=== PATIENT | male | born 1990 | race Caucasian/White ===

== ENCOUNTER 2016-12-14 16:44 | Inpatient (IN) | payer BC ==
--- NOTE | ~2016-12-14 | HP ---
Unit #: [id number] #: [id number] Patient: LAVELL BARKER [id number] [place] [address] [id number] MR#: [id number] NAME: LAVELL BARKER ROOM: P252 Age: 26 Sex: M Admission Date: 12/14/2016 : 1990 Attending Physician: Vasquez Corona M.D. Admitting Physician: Vasquez Corona M.D. Primary Care Physician: Primary Care Physician No HISTORY AND PHYSICAL History and physical completed on 12/15/2016. HISTORY OF PRESENT ILLNESS Lavell is a 26-year-old male, admitted on 12/14/2016, to [address] [place] [address] for suicidal ideation. PAST MEDICAL HISTORY GERD. PAST SURGICAL HISTORY None. SOCIAL HISTORY Denies tobacco use but does use vapes. No alcohol or illegal drug use. He is currently engaged and lives with his fiancee and [id number] son. FAMILY HISTORY Noncontributory. REVIEW OF SYSTEMS CONSTITUTIONAL: No fever or chills. HEENT: Denies any sore throat, ear pain or runny nose. CARDIOVASCULAR: Denies chest pain, irregular heart rhythm or palpitations. CHEST: Denies shortness of breath or cough. No hemoptysis. GASTROINTESTINAL: Denies nausea, vomiting, diarrhea or chronic constipation. ENDOCRINE: Denies history of increased thirst or urination. No recent significant weight loss or gain. GENITOURINARY: Denies dysuria, frequency, or hematuria. SKIN: Denies any rashes. HEMATOLOGIC: Denies history of increased bleeding or bruising. MUSCULOSKELETAL: Denies any hot, swollen joints. No generalized muscle pain. NEUROLOGIC: Denies problems with vision or speech. No frequent, severe headaches. No numbness, tingling or weakness in any extremities. Denies loss of bladder or bowel control. CURRENT MEDICATIONS Omeprazole and Zoloft. ALLERGIES No known drug allergies. Unit #: [id number] #: [id number] Patient: LAVELL BARKER PHYSICAL EXAMINATION GENERAL: Alert, oriented, no acute distress. VITAL SIGNS: Blood pressure 127/92, heart rate 62, respirations 16, and temperature 98.8. HEIGHT: 6 feet 1 inch. WEIGHT: 198 pounds. SKIN: Warm and dry without rash or lesion. HEENT: Normocephalic. TMs not viewed. Oral and nasal passages clear. Conjunctivae clear. PERRLA. EOMs intact. NECK: Supple without lymphadenopathy or thyromegaly. HEART: Regular rate and rhythm without murmur. LUNGS: Clear. ABDOMEN: Soft, nontender. : Not done. EXTREMITIES: No evidence of cyanosis, clubbing or edema. Moves all without focal deficit. NEUROLOGICAL: Grossly within normal limits. Cranial Nerves: II: Visual ramos are intact. III, IV AND : Extraocular movements are intact. Pupils are equal, round and reactive to light. V: Facial sensation is grossly normal. VII: Facial movements and expression are normal. VIII: Auditory acuity grossly intact. IX, X: Uvula is midline. Phonation is normal. XI: Patient shrugs shoulders and turns head normally. XII: Tongue protrudes in the midline. Sensory and Motor Function: Sensory and motor sensation is grossly normal. Motor: moves all extremities well. Coordination: Gait is normal. Deep Tendon Reflexes: Intact. IMPRESSION 1. Psychiatric admission. 2. GERD. RECOMMENDATIONS Psychiatric, per psychiatrist. MEDICAL No contraindications to participating in facility's activities. MEDICAL PROGNOSIS Good. MEDICAL CONDITION Stable. Dictated by... Juni Jenkins TD: 12/15/2016 12:19 JOB #: [id number] Unit #: [id number] #: [id number] Patient: LAVELL BARKER HISTORY AND PHYSICAL Page 1 of 1 X TEA ANGULO APRN X HISTORY AND PHYSICAL
--- NOTE | ~2016-12-14 | PN ---
Unit #: [id number] #: [id number] Patient: LAVELL JOHNSON [id number] [facility] [address] [place] [address] [id number] I MR#: [id number] NAME: LAVELL JOHNSON ROOM: P252 Age: 26 Sex: M Admission Date: 12/14/2016 : 1990 Attending Physician: Vasquez Corona M.D. Admitting Physician: Vasquez Corona M.D. Primary Care Physician: Primary Care Physician No RAMONA PROGRESS NOTES DATE OF SERVICE 12/18/2016 DISCUSSION Mr. Johnson says that his Zoloft is making him more irritable, agitated and anxious. His mood remains depressed with a congruent affect. He is alert and fully oriented. His memory and concentration are intact. His thought processes are logical with no active psychosis. He does report ongoing thoughts of suicide. ASSESSMENT Major depression. PLAN Change Zoloft to Remeron 30 mg at bedtime Dictated by... Elba Lovelace/heath TD: 12/23/2016 23:15 JOB #: [id number] [facility] PROGRESS NOTES Page 1 of 1 X Vasquez Corona MD PROGRESS NOTE
--- NOTE | ~2016-12-14 | DS ---
Unit #: [id number] #: [id number] Patient: LAVELL JOHNSON [id number] [facility] [address] [place] [address] [id number] I MR#: [id number] NAME: LAVELL JOHNSON ROOM: [facility] Age: 26 Sex: M Admission Date: 12/14/2016 : 1990 Discharge Date: 12/19/2016 Attending Physician: Vasquez Corona M.D. Primary Care Physician: Primary Care Physician No DISCHARGE SUMMARY REASON FOR ADMISSION Mr. Johnson is a 26-year-old man, who reported increasing hopelessness, helplessness, anxiety, and irritability with his family. He feared that he would have an outburst and hurt his fiance or young children and was admitted for stabilization. DIAGNOSTIC STUDIES LABORATORY RESULTS: Please see hospital chart. HOSPITAL COURSE The patient was admitted and placed on suicide precautions. Zoloft 50 mg daily had been just started and so it was continued. He tolerated this inpatient milieu with no difficulty and improved with attendance at group therapy. He complained eventually that the Zoloft was making him more irritable and this was changed to Remeron 30 mg at bedtime, which was better tolerated. He was able to contract for safety under these conditions and was discharged in safe condition. DISCHARGE DIAGNOSES AXIS I: Major depression. AXIS II: No diagnosis. AXIS III: None acute. AXIS IV: AXIS V: DISCHARGE INSTRUCTIONS Follow up with psychiatrist and therapist as previously arranged. DISCHARGE MEDICATIONS Remeron 30 mg at bedtime for depression. CONDITION AT DISCHARGE Improved. PROGNOSIS Good. DIET AND ACTIVITY Ad maurice. Dictated by... Unit #: [id number] #: [id number] Patient: LAVELL JOHNSON Vasquez Corona M.D. [facility]/modl TD: 01/05/2017 12:30 JOB #: [id number] DISCHARGE SUMMARY Page 1 of 1 X Vasquez Corona MD X DISCHARGE SUMMARY
--- NOTE | ~2016-12-14 | PA ---
Unit #: [id number] #: [id number] Patient: LAVELL JOHNSON [id number] [facility] [address] [place] [address] [id number] I MR#: [id number] NAME: LAVELL JOHNSON ROOM: P252 Age: 26 Sex: M Admission Date: 12/14/2016 : 1990 Date of Assessment: Attending Physician: Vasquez Corona M.D. Admitting Physician: Vasquez Corona M.D. Primary Care Physician: Primary Care Physician No PSYCHIATRIC ASSESSMENT INFORMANTS Patient reliable; OLOP, reliable. CHIEF COMPLAINT "I have been having thoughts of suicide. HISTORY OF PRESENT ILLNESS Mr. Johnson is a 26-year-old man, who reports increasing helplessness, hopelessness, anxiety, and irritability with his family. He has been scheduled to go to see a therapist, but is afraid that he is going to have an outburst and hurt his young children or his fiancee. He was unable to contract for safety and was admitted for stabilization. PAST PSYCHIATRIC HISTORY No previous admissions to this or other local facilities. He has been taking Zoloft 50 mg daily, but just for a couple of days. FAMILY PSYCHIATRIC HISTORY The patient has a sister with bipolar disorder. SOCIAL HISTORY The patient has a fiancee and they have a young child together. He is currently not working and has a GED. He lives with his fiancee and their child. He has a brother, who committed suicide in 2001. PAST MEDICAL HISTORY Significant for GERD. MEDICATIONS Prilosec. ALLERGIES No known medication allergies. SUBSTANCE ABUSE HISTORY He has used cocaine and marijuana in the past, but none for many years. MENTAL STATUS EXAMINATION The patient presented as a neatly dressed and groomed man, who appeared his stated age. He was cooperative with the examination. His speech was spontaneous and easily understood. Musculoskeletal examination was calm. His mood was depressed with a congruent affect. He was alert and fully oriented. Memory and concentration were fair. Thought processes were Unit #: [id number] #: [id number] Patient: LAVELL JOHNSON goal directed with no active psychosis. He reported suicidal ideation and could not contract for safety outside of the hospital. His insight and judgment were intact. His fund of knowledge and abstraction were intact. ASSETS AND LIABILITIES The patient presents voluntarily for treatment and has supportive family. Liabilities include lack of current treatment and occupational and social difficulties. ADMITTING DIAGNOSES AXIS I: Major depression, F33.2. AXIS II: No diagnosis. AXIS III: None acute. AXIS IV: AXIS V: PSYCHIATRIC PLAN The patient was admitted and placed on suicide precautions. We will continue on Zoloft 50 mg daily and monitor for response. He will enroll in dual diagnosis groups and activities, and a physical examination and laboratory studies will be ordered and reviewed. TREATMENT GOALS Resolution of SI, improvement in insight, and improvement in coping skills. DISCHARGE PLANNING Follow up with [facility]. ESTIMATED LENGTH OF STAY 5 days. Dictated by... Vasquez Corona M.D. FAROOQ/donell TD: 12/18/2016 11:37 JOB #: [id number] PSYCHIATRIC ASSESSMENT Page 1 of 1 X Vasquez Corona MD X PSYCHIATRIC ASSESSMENT
--- NOTE | ~2016-12-14 | PN ---
Unit #: [id number] #: [id number] Patient: LAVELL BARKER [id number] [place] [address] [id number] I MR#: [id number] NAME: LAVELL BARKER ROOM: P252 Age: 26 Sex: M Admission Date: 12/14/2016 : 1990 Attending Physician: Vasquez Corona M.D. Admitting Physician: Vasuqez Corona M.D. Primary Care Physician: Primary Care Physician Sarah FOUNTAIN NOTES DATE December 17, [address] Vasquez Corona at [facility] DISCUSSION Upon today's assessment, the patient was found sitting in the day room, appearing in no apparent discomfort. At this time, he reports elevated level of anxiety and describes this as "feeling antsy and panicky." He doesn't report any specific trigger but reports starting to feel this way last evening where she stated that he had a difficult night of sleep, he was restless, and he reports frequent awakenings at this time. PLAN Continue to monitor the patient every fifteen minutes for safety and continue current medications. Dictated by... DOMINIQUE Malave TD: 12/19/2016 10:30 JOB #: [id number] [facility] PROGRESS NOTES Page 1 of 1 X RONEL SLAUGHTER PROGRESS NOTE
--- NOTE | ~2016-12-14 | PN ---
Unit #: [id number] #: [id number] Patient: LAVELL BARKER [id number] [facility] [address] [place] [address] [id number] MR#: [id number] NAME: LAVELL BARKER ROOM: P252 Age: 26 Sex: M Admission Date: 12/14/2016 : 1990 Attending Physician: Vasquez Corona M.D. Admitting Physician: Vasquez Corona M.D. Primary Care Physician: Primary Care Physician No RAMONA PROGRESS NOTES DATE 12/16/2016 DISCUSSION Upon today's assessment, the patient reports "I'm okay." He currently reports no suicidal or homicidal ideation and verbalizes no plan or intent. He denies auditory or visual hallucinations, and no overt symptoms of psychosis noted at this time. He denies any self-harm or intent to self-harm at this time. He has been attending groups and invisible in the milieu, interacting with peers and staff. PLAN Continue current medications and monitor q. 15 minutes for safety. Dictated by... DOMINIQUE Malave TD: 12/19/2016 10:16 JOB #: [id number] [facility] PROGRESS NOTES Page 1 of 1 X RONEL SLAUGHTER PROGRESS NOTE
[2016-12-15 10:02] LABS: BASOPHIL% 0.3 % (0-2.5); EOSINOPHIL# 0.1 X10e3 (0-0.7); EOSINOPHIL% 1.4 % (0.0-7.0); HEMATOCRIT 41.8 % (38.0-50.0); LYMPHOCYTE# 1.9 X10e3 (1.0-3.5); LYMPHOCYTE% 29.9 % (17.0-45.0); MEAN CELL VOLUME 85.6 FL (83-96); MEAN CORPUSCULAR HEMOGLOBIN 28.6 PG (28-34); MEAN CORPUSCULAR HGB CONC 33.4 g/dL (30-36); MEAN PLATELET VOLUME 9.7 FL (6.5-11.5); MONOCYTE# 0.4 X10e3 (0-1.0); MONOCYTE% 6.9 % (3.0-12.0); NEUTROPHIL% 61.5 % (40-75); PLATELET COUNT 253 X10e3 (140-420); RED BLOOD COUNT 4.89 X10e (3.90-5.60); RED CELL DISTRIBUTION WIDTH 12.7 % (11.0-15.5); WHITE BLOOD COUNT 6.5 X10e3 (4.0-10.5)
[2016-12-15 10:03] LABS: DIFF IND NO
[2016-12-15 10:06] LABS: ALBUMIN SERUM 4.1 g/dL (3.5-5.0); BUN/CREATININE RATIO 18.57; CALCIUM SERUM 9.4 mg/dL (8.4-10.2); CREATININE SERUM 0.7 mg/dL (0.6-1.4); GLOM FILT RATE Estimated 130.3 mL/min (>60); POTASSIUM 4.4 mmol/L (3.5-5.1); PROTEIN TOTAL SERUM 6.7 g/dL (6.0-8.3)
[2016-12-19 13:01] LABS: AMPHETAMINE NEG (NEG); BARBITURATES NEG (NEG); BENZODIAZEPINES NEG (NEG); COCAINE NEG (NEG); MARIJUANA NEG (NEG); OPIATES NEG (NEG); TRICYCLIC ANTIDEPRESSANTS NEG (NEG); U METHADONE NEG (NEG)
== END 2016-12-19 14:45 | disposition home or self-care (01) | DRG 885 ==
LOC: P2L 18:14
PROVIDERS: Psychiatry & Neurology Psychiatry
DX: F33.9 Major depressive disorder, recurrent, unspecified (principal); R45.851 Suicidal ideations; Z81.8 Family history of other mental and behavioral disorders
CPT/HCPCS: 80053; 80307; 85025